=== PATIENT | male | born 2005 | race Caucasian/White ===

== ENCOUNTER 2025-05-23 01:21 | Emergency (ER) | payer SELFPAY ==
[~2025-05-23] VITALS: Ht 160 cm; Wt 52.2 kg
[2025-05-23] MEDS: ALBUTEROL FS 2.5 MG/3 ML VIAL.NEB NEB ONE (01:52)
[2025-05-23] MEDS: IPRATROPIUM NEB FS 0.5 MG/2.5 ML AMPUL.NEB NEB ONE (01:52)
[2025-05-23] MEDS ORDERED: IPRATROPIUM NEB FS 0.5 MG/2.5 ML AMPUL.NEB ONE (01:56)
[2025-05-23] MEDS ORDERED: ALBUTEROL FS 2.5 MG/3 ML VIAL.NEB ONE (01:56)
[2025-05-23 02:01] VITALS: O2SAT 97
[2025-05-23 02:16] VITALS: O2SAT 99
[2025-05-23 02:21] VITALS: O2SAT 99
[2025-05-23] MEDS: IV NS 0.9% 1,000 ML BAG IV ONE (02:29)
[2025-05-23] MEDS: Magnesium 1GM/D5W 100ML PREMIX 200 ML IV ONE (02:29)
[2025-05-23] MEDS ORDERED: IPRA3AMP23 IH (02:32)
[2025-05-23] MEDS ORDERED: PRED50TA PO (02:32)
[2025-05-23] MEDS ORDERED: NEBU-171 MC (02:32)
[2025-05-23] MEDS ORDERED: AZIT500T4 PO (02:32)
[2025-05-23 02:36] VITALS: O2SAT 99
[2025-05-23 03:37] VITALS: BP 128/88; TEMP 99; O2SAT 95
== END 2025-05-23 03:41 | disposition home or self-care (01) ==
LOC: ER 01:22
DX: J45.901 Unspecified asthma with (acute) exacerbation (principal); R05.9 Cough, unspecified; Z79.52 Long term (current) use of systemic steroids; Z60.2 Problems related to living alone
CPT/HCPCS: J7030